=== PATIENT | male | born 1970 | race Hispanic/Latino ===

== ENCOUNTER 2018-06-27 23:42 | Emergency (ER) | payer SELFPAY ==
[~2018-06-27] VITALS: Ht 180.3 cm; Wt 99.8 kg
--- OUTSIDE RECORDS SUMMARY | 2018-06-27 23:45 | XMS REPORT ---
Author Author [facility] Address Unknown Phone Unavailable Care Team Providers Care Senior Marketing Specialist Name Role Phone Unavailable Unavailable Payers Payer Name Policy Type Policy Number Effective Date Expiration Date Problems This patient has no known problems. Allergies, Adverse Reactions, Alerts Allergy Name Allergy Type Status Severity Reaction(s) Onset Date Inactive Date Treating Clinician Comments iodine DA Active SV 2010-11-06 00:00:00 Medications This patient has no known medications. Results Test Description Test Time Test Comments Text Results Atomic Results Result Comments BASIC METABOLIC PANEL 2018-06-26 00:41:00 SODIUM (test code=NA) 131 mmol/L 135-148 POTASSIUM (test code=K) 3.7 mmol/L 3.5-5.1 CHLORIDE (test code=CL) 97 mmol/L 101-109 CARBON DIOXIDE (test code=CO2) 25.4 mmol/L 21-32 ANION GAP (test code=GAP) 12 mmol/L 10-20 GLUCOSE (test code=GLU) 162 mg/dL 74-106 BLOOD UREA NITROGEN (test code=BUN) 13 mg/dL 3-21 GLOMERULAR FILTRATION RATE (test code=GFR) > 60 mL/min >=60 Estimated GFR by using Modified MDRD formula.Chronic kidney disease is defined as either kidney damageor GFR <60 mL/min/1.73 m2 for >3 months. CREATININE (test code=CREAT) 0.77 mg/dL 0.55-1.3 BUN/CREATININE RATIO (test code=BUN/CREA) 16.9 10-20 CALCIUM (test code=CA) 8.8 mg/dL 8.4-10.2 HEPATIC FUNCTION [id number] 00:41:00* Test Item Value Reference Range Comments TOTAL PROTEIN (test code=PROT) 8.2 g/dL 6.5-8.4 ALBUMIN (test code=ALB) 3.7 g/dL 3.4-4.8 GLOBULIN (test code=GLOB) 4.5 G/DL 1-10 ALBUMIN/GLOBULIN RATIO (test code=A/G) 0.8 RATIO 0.75-1.50 BILIRUBIN TOTAL (test code=BILT) 1.20 mg/dL 0.0-1.0 BILIRUBIN DIRECT (test code=BILD) 0.50 mg/dL 0.0-0.30 SGOT/AST (test code=AST) 137 U/L 6-32 SGPT/ALT (test code=ALT) 107 U/L 12-78 Note: Change in REFERENCE RANGE due to new reagent method. ALKALINE PHOSPHATASE TOTAL (test code=ALKP) 219 U/L 38-126 [id number] 00:41:00* Test Item Value Reference Range Comments LIPASE (test code=LIP) 168 U/L 128-270 BASIC METABOLIC [id number] 00:37:00* Test Item Value Reference Range Comments SODIUM (test code=NA) 131 mmol/L 135-148 POTASSIUM (test code=K) 3.7 mmol/L 3.5-5.1 CHLORIDE (test code=CL) 97 mmol/L 101-109 CARBON DIOXIDE (test code=CO2) 25.4 mmol/L 21-32 ANION GAP (test code=GAP) 12 mmol/L 10-20 GLUCOSE (test code=GLU) 162 mg/dL 74-106 BLOOD UREA NITROGEN (test code=BUN) 13 mg/dL 3-21 GLOMERULAR FILTRATION RATE (test code=GFR) > 60 mL/min >=60 Estimated GFR by using Modified MDRD formula.Chronic kidney disease is defined as either kidney damageor GFR <60 mL/min/1.73 m2 for >3 months. CREATININE (test code=CREAT) 0.77 mg/dL 0.55-1.3 BUN/CREATININE RATIO (test code=BUN/CREA) 16.9 10-20 CALCIUM (test code=CA) 8.8 mg/dL 8.4-10.2 HEPATIC FUNCTION [id number] 00:37:00* Test Item Value Reference Range Comments TOTAL PROTEIN (test code=PROT) gram/dL 6.4-8.2 ALBUMIN (test code=ALB) g/dL 3.4-5.0 GLOBULIN (test code=GLOB) g/dL 2.7-4.2 ALBUMIN/GLOBULIN RATIO (test code=A/G) 0.75-1.50 BILIRUBIN TOTAL (test code=BILT) mg/dL 0.2-1.2 BILIRUBIN DIRECT (test code=BILD) mg/dL 0.0-0.20 SGOT/AST (test code=AST) IUnit/L 15-37 SGPT/ALT (test code=ALT) U/L 10-69 ALKALINE PHOSPHATASE TOTAL (test code=ALKP) IUnit/L 45-117 [id number] 00:37:00* Test Item Value Reference Range Comments LIPASE (test code=LIP) Unit/L 144-286 CBC W/O [id number] 00:31:00* Test Item Value Reference Range Comments WHITE BLOOD CELL (test code=WBC) 4.7 K/mm3 4.5-12.5 RED BLOOD CELL (test code=RBC) 4.23 mill/mm3 4.0-5.8 HEMOGLOBIN (test code=HGB) 14.9 gram/dL 13.0-17.5 HEMATOCRIT (test code=HCT) 41.4 % 42.0-52.0 MEAN CELL VOLUME (test code=MCV) 97.9 fL 80-98 MEAN CELL HGB (test code=MCH) 35.2 picogram 27.0-33.0 MEAN CELL HGB CONCETRATION (test code=MCHC) 36.0 gram/dL 33.0-36.0 RED CELL DISTRIBUTION WIDTH (test code=RDW) 12.2 % 11.6-16.2 RED CELL DISTRIBUTION WIDTH SD (test code=RDW-SD) 42.5 fL 39.2-49.5 PLATELET COUNT (test code=PLT) 76 K/mm3 150-450 MEAN PLATELET VOLUME (test code=MPV) 10.5 fL 6.7-11.0 - XR CHEST 2 [id number] 00:14:00 [facility] [place] [facility] 1970 Age[facility]47 /M [address] [facility] Unit#:[id number] Loc: [place] [address] Phys: Main Zuleta MD Dis Date: PHONE #: [phone] Status: REG ER FAX #: [phone] Exam Date: 06/25/2018 Reason: Cough EXAMS: CPT CODE: [id number] XR CHEST 2 V 11721 LOCATION: Q15 HISTORY: 47-year-old male who presents with a cough. COMMENT: Frontal and lateral chest radiographs were obtained. An older examination of November 06, 2010 is available for comparison. The lungs are clear and well-aerated. The cardiac silhouette, marco, and mediastinum are within normal limits. The skeleton and soft tissues are unremarkable. IMPRESSION: Unremarkable radiographic examination of the chest. Field 5 at 0014 Reported and signed by: Silver Arenas M.D. CC: Main Zuleta MD Technologist: ROSA NIEVES RT(R),RDMS,CT Trnscrpt Data: 06/26/2018 (0014) t.[email or web address] Orig Print D/T: S: 06/26/2018 (0017) PAGE 1 Signed Report
[2018-06-28] MEDS ORDERED: IBUPROFEN 600 MG TAB ONE (00:01)
[2018-06-28] MEDS ORDERED: ACETAMINOPHEN 325 MG TAB ONE (00:01)
[2018-06-28] MEDS ORDERED: IBUPROFEN 600 MG TAB PO STA (00:05)
--- NOTE | 2018-06-28 00:06 | NUR ---
PT HAD CHEST XRAY YESTERDAY PER PT
--- NOTE | 2018-06-28 00:10 | NUR ---
PT REFUSES STREP TEST
[2018-06-28] MEDS ORDERED: ACETAMINOPHEN 325 MG TAB PO ONE (00:15)
--- NOTE | 2018-06-28 00:15 | NUR ---
REQUEST TO LEAVE
== END 2018-06-28 00:29 | disposition left against medical advice (07) ==
LOC: ER 23:42
DX: R50.9 Fever, unspecified (principal)
CPT/HCPCS: 99281